=== PATIENT | female | born 1975 | race Caucasian/White ===

== ENCOUNTER 2020-04-13 10:10 | Outpatient (REF) | payer OTHER, SELFPAY | END 2020-04-13 10:11 | disposition home or self-care (01) | LOC: HO.HMGCLDS 10:10 | PROVIDERS: PCP Nurse Practitioner Family; Visit Provider Internal Medicine | DX: Z20.828 Contact with and (suspected) exposure to other viral communicable diseases (principal) | CPT/HCPCS: U0003 ==

== ENCOUNTER 2025-03-30 08:29 | Outpatient (AMB) | payer OTHER, SELFPAY ==
--- NOTE | 2025-03-30 08:29 | MHC.OFFVIS ---
Vital Signs 03/30/25 08:43 Height 5 ft 5 in Weight 240 lb BMI 39.9 BP 140/110 H Blood Pressure Location Rt brachial Position Sitting Respiration 16 Pulse 101 H Pulse Source Pulse Oximeter Pulse Oximetry (%) 96 Oxygen Delivery Method Room Air Intake Visit Reasons: Migraine Differential Tester Required: No Allergies No Known Allergies Allergy (Verified 03/30/25 08:43) Medication List - Last Reconciled 03/30/25 by Paris Terrazas, CHRISTINE eletriptan 0 mg PO erenumab-aooe (Aimovig Autoinjector) mg subcut escitalopram oxalate 10 mg PO DAILY gabapentin 100 mg PO BID 5 days ondansetron HCl 4 mg PO prednisone Day1: Take 3 tablets by mouth in the morning Day2: Take 2 tablets by mouth in the morning Day3: Take 1 tablet by mouth in the morning Day4: Take 0.5 tablet by mouth in the morning Day5: Taken 0.5 tablet by mouth in the morning HPI Comments Details: Naina is a 49-year-old female patient with a past medical history of anxiety and obesity here today to reestablish care with me here at [facility]. I was previously seeing her all at [facility] for treatment of her migraines. She had more recently and placed on Aimovig for migraine prevention and had further improvement in her migraines when Aimovig was increased to 140 mg. She was on eletriptan for abortive therapy was initially some improvement over time we did transition her to zolmitriptan for lack of improvement with the eletriptan. Along with some increased stress levels at home, she had more recently been experiencing higher levels of stress. We added magnesium 400 mg daily back in January of 2025 and I attempted to obtain Ubrelvy 100 mg for abortive therapy though this was denied by her insurance due to concurrent use of Aimovig. She tells me today that she has a very severe migraine which has been present over the course of the days. She has perhaps not had this severe migraine ever in her life before. She has a accompanying severe light sensitivity, nausea, and fatigue. Her head pain is to the left parietal area and felt dizzy throbbing pain. She had a stressful day at work the other day when a patient made her upset and she had an elevation in her blood pressure and a very severe increase in her head pain. She denies any current positional component to her headache and her headache in general is slow onset within a few hours. 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 Past medication trials: Topiramate-cognitive slowing and for efficacy for migraine Eletriptan-no significant improvement Zolmitriptan-sensation of whole-body weakness and blurry vision Sumatriptan-no significant benefit Review of Systems Const All systems reviewed & are unremarkable except as noted in HPI and below Physical Exam Vital Signs: Last Vital Signs Pulse 101 H 03/30/25 08:43 Resp 16 03/30/25 08:43 BP 140/110 H 03/30/25 08:43 Pulse Ox 96 03/30/25 08:43 Oxygen Delivery Method Room Air 03/30/25 08:43 BMI result Body Mass Index 39.9 Const General: cooperative, healthy appearing, comfortable and no acute distress Nutritional Appearance: well nourished Orientation/consciousness: patient oriented x3 Limitations: no limitations HEENT Head: Yes normal to inspection and Yes normocephalic Eyes General: appearance normal, both eyes and all related structures Visual Cyr: normal visual cyr by confrontation Alignment and Position: alignment normal Periorbital: periorbital findings normal Eyelids: Yes eyelids normal Conjunctivae: conjunctivae normal Sclerae: sclerae normal Neuro General: patient oriented x3 and deep tendon reflexes 2+ bilaterally Cranial nerves: Yes CN's II-XII intact bilaterally and Yes Facial sensation intact/muscles of mastication intact Cognition (Neuro): normal cognition Gait exam (Neuro): Normal gait present Motor exam (neuro): 5/5 motor strength present throughout and no tremor noted Sensory Exam: double simultaneous stimulation for sensation normal Romberg Test: Negative Pupils: Normal pupillary reactivity/response: bilateral Psych Appearance: grossly normal Mental Status: mental status grossly normal Speech and movement: Normal speech and movement present and Clear speech present Affect: normal affect Attitude: cooperative Thought process: Normal thought process present Thought content: Normal thought content present Insight: Good insight present (Psych) Judgement: Good judgement present (Psych) Assessment & Plan Assessment & Plan (1) Worsening headaches: Code(s): R51.9 - Headache, unspecified Category: Medical Plan: . (2) Migraine without aura and without status migrainosus, not intractable: Code(s): G43.009 - Migraine without aura, not intractable, without status migrainosus Category: Medical Plan: . Charline Chew is a 49-year-old female patient with a past medical history of anxiety and obesity here today to reestablish care with me here at [facility]. I was previously seeing her all at [facility] for treatment of her migraines. She has been doing relatively well on the Aimovig 140 monthly until 5 days ago when she started to develop a very severe migraine type headache. This is perhaps the most severe migraine she has experienced though features are similar as well as her location of the pain. There are no other red flags for this headache. I suspect it is a severe migraine attack especially that she is due for her next Aimovig injection and this may be secondary to a wear off effect. I will treat with a course of steroids into 5 day course of gabapentin for pain. I gave her a work note to remain out of work and to rest and hydrate. She was provided with a 100 mg tablet of Ubrelvy in office today and I have ordered urgent imaging including a CT and CTA for further evaluation given that this is the worst migraine she has experienced. -Ubrelvy 100 mg sample tablet given in office today lot number:[id number] expiration 05/2026 -5 day course of prednisone for cycle breaking -5 day course of gabapentin 100 mg twice daily for pain control -rest and hydration and remain out of work until at least Thursday of next week -urgent CT of the brain and CTA of the head and neck -follow up after testing Orders: Orders CT head/brain wo IV con Today R51.9 - Headache, unspecified CT angio head neck Today R51.9 - Headache, unspecified Medications: New prednisone Day1: Take 3 tablets by mouth in the morning Day2: Take 2 tablets by mouth in the morning Day3: Take 1 tablet by mouth in the morning Day4: Take 0.5 tablet by mouth in the morning Day5: Taken 0.5 tablet by mouth in the morning 7 tabs 0RF gabapentin 100 mg PO BID 10 caps 0RF 5 days Coding Level of Care Code New Pt Level 4 (84465) Diagnoses Worsening headaches R51.9 Migraine without aura and without status migrainosus, not intractable G43.009
[2025-03-30 08:43] VITALS: BP 140/110; PULSE 101; RESP 16; O2SAT 96; BMI 39.9
--- OUTSIDE RECORDS SUMMARY | 2025-03-30 08:50 | XMS_ITS | Clinical Summary ---
Author Organization [facility] [address] [facility] Address [address] [place] [address] Phone Care Team Providers Care Private Inquiry Agent Name Role Phone Janis Gonzalez RECOOPERER Primary Care Provider + [phone] Allergies No known active allergies Medications erenumab-aooe (Aimovig Autoinjector) 140 mg/mL injection Inject 1 mL (140 mg total) under the skin every 28 (twenty-eight) days. Active escitalopram (LEXAPRO) 10 mg tablet Take 1 tablet (10 mg total) by mouth 1 (one) time each day. Active oxymetazoline 1 % cream Apply topically 1 (one) time each day. Active eletriptan (RELPAX) 40 mg tablet Take 1 tablet (40 mg total) by mouth 1 (one) time if needed for migraine. May repeat in 2 hours if unresolved. Do not exceed 80 mg in 24 hours. Active valACYclovir (VALTREX) 500 mg tablet Take 1 tablet (500 mg total) by mouth 2 (two) times a day. Active estradioL (ESTRACE) 0.5 mg tablet Take 1 tablet (0.5 mg total) by mouth 1 (one) time each day in the morning. 5 Active bisacodyL (DULCOLAX) 5 mg EC tablet Take 2 tablets by mouth right before beginning bowel prep. See instructions provided by the office 2 tablet 5 Active polyethylene glycol (Golytely) 236-22.74-6.74 -5.86 gram solution Take 4L by mouth once for one dose. May substitue any PEG. Starting at 2PM the day before your procedure drink 1 8oz glasses at your own pace until you complete half of the gallon. Finish 2nd half of the gallon at 8PM. 4000 mL 5 Active dicyclomine (BENTYL) 10 mg capsuleIndicati ons:Irritable bowel syndrome with diarrhea Take 1 capsule (10 mg total) by mouth 3 (three) times a day if needed (diarrhea). 90 capsule 5 5 07/12/19 26 Active polyethylene glycol (Golytely) 236-22.74-6.74 -5.86 gram solution Take 4L by mouth once for one dose. May substitue any PEG. Starting at 2PM the day before your procedure drink 1 8oz glasses at your own pace until you complete half of the gallon. Finish 2nd half of the gallon at 8PM. 4000 mL 5 Active bisacodyL (DULCOLAX) 5 mg EC tablet Take 2 tablets by mouth right before beginning bowel prep. See instructions provided by the office 2 tablet 5 Active Active Problems Problem Noted Date Diagnosed Date Severe obesity (BMI 35.0-35. 9 with comorbidity) (CMS/HCC V24, CMS/HCC V28) 01/13/2025 Hyperlipidemia 01/13/2025 Anxiety 01/13/2025 Classic migraine 01/13/2025 Encounters Date Type Department Care Team Description 03/08/2025 Telephone Gastroenterology - [facility] [address] [place] [phone] Ashok Keita DO 01/17/2025 Telephone Gastroenterology [facility] [address] [facility] [address] [place] [phone] Atul Yen MD 01/13/2025 8:42 AM EDT - 01/13/2025 11:59 PM EDT Hospital Encounter [facility]ray [address] [place] [phone] Irritable bowel syndrome with diarrhea Discharge Disposition: Home or Self Care 01/13/2025 8:30 AM EDT Consult Gastroenterology - [address] [place] [phone] Caitlin Ortega PA Irritable bowel syndrome with diarrhea (Primary Dx); Colon cancer screening 01/13/2025 Telephone Gastroenterology - 299 [facility] [address] [facility] [address] [place] [phone] Jacquelin Wilson MA 01/13/2025 Telephone Gastroenterology - 299 [facility] [address] [facility] [address] [place] [address] Marie Castro MA from Last 3 Months Surgical History Surgery Date Site/Laterality Comments WRIST SURGERY Right Family History Medical History Relation Name Comments Hyperlipidemia Father Prostate cancer Father Heart attack Mother Irritable bowel syndrome Mother Colon cancer Neg Hx Inflammatory bowel disease Neg Hx Relation Name Status Comments Father Mother Social History Tobacco Use Types Packs/Day Years Used Date Smoking Tobacco: Former Cigarettes Smokeless Tobacco: Former Tobacco Cessation:Counseling Given: Not Answered Alcohol Use Standard Drinks/Week Comments Yes 0 (1 standard drink = 0.6 oz pur e alcohol) rare Comments Unknown Sex and Gender Information Value Date Recorded Sex Assigned at Female 01/15/2025 6:21 PM EDT Legal Sex Female 2:56 AM EST Gender Identity Female 01/15/2025 6:21 PM EDT Sexual Orientation Not on file Obstetrics History Last Filed Vital Signs Vital Sign Reading Time Taken Comments Blood Pressure - - Pulse - - Temperature - - Respiratory Rate - - Oxygen Saturation - - Inhaled Oxygen Concentration - - Weight 109 kg (240 lb) 01/13/2025 8:16 AM EDT Height 165.1 cm (5' 5 ) 01/13/2025 8:16 AM EDT Body Mass Index 39.94 01/13/2025 8:16 AM EDT Plan of Treatment Upcoming Encounters Date Type Department Care Team (Late st Contact Info) Description 05/15/2025 1:30 PM EST Appointment [facility] Endoscopy [address] [place] [phone] Ashok Keita DO 175 [facility] [place] [address] [place] [address] Health Maintenance Due Date Last Done Comments Breast Cancer Screening 1974 Colorectal Cancer Screening: Colonoscopy 1974 Hepatitis B Vaccines (1 of 3 - 19+ 3-dose series) 1993 Cholesterol Screening (Lipid Panel) 05/18/2022 HIV Screening 05/18/2022 Hepatitis C Screening 05/18/2022 Social Influencers of Health Screening 05/18/2022 Depression Screening 06/15/2024 Pneumococcal Vaccine: 50+ Years (1 of 1 - PCV) 2024 RSV Immunization Adult Patients (1 - Risk 50-74 years 1-dose series) 2024 Zoster Vaccines (1 of 2) 2024 COVID-19 Vaccine (4 - 2024-2 6 season) 2025 05/30/2021, 07/31/2020, 07/06/2020 Influenza Vaccine (#1) 2025 04/13/2020 Cervical Cancer Screening: P ap Smear 11/30/2027 11/29/2024 DTaP,Tdap,and Td Vaccines (3 - Td or Tdap) 02/24/2034 02/25/2024, 03/31/2012 HIB Vaccines Aged Out No longer eligi ble based on patient's age to complete this topic HPV Vaccines Aged Out No longer eligi ble based on patient's age to complete this topic Hepatitis A Vaccines Aged Out No long er eligible based on patient's age to complete this topic IPV Vaccines Aged Out No longer eligi ble based on patient's age to complete this topic MMR Vaccines Aged Out No longer eligi ble based on patient's age to complete this topic Meningococcal ACWY Vaccine Aged Out N o longer eligible based on patient's age to complete this topic Meningococcal B Vaccine Aged Out No l onger eligible based on patient's age to complete this topic RSV Immunization Patients Under 20 months Aged Out No longer eligible b ased on patient's age to complete this topic Varicella Vaccines Aged Out No longer eligible based on patient's age to complete this topic Procedures Procedure Name Priority Date/Time Associated Diagnosis Comments XR ABDOMEN 1 VIEW Routine 01/13/2025 8:4 9 AM EDT Irritable bowel syndrome with diarrhea PAP SMEAR Routine 11/29/2024 12:00 AM EDT Encounter for gynecological examination (general) (routine) without abnormal findings from Last 3 Months or Most Recently Relevant to Health Maintenance Results * XR Abdomen 1 View (01/13/2025 8:49 AM EDT) Anatomical Region Laterality Modality Body Radiographic Mavis ging 01/13/2025 10:0 6 AM EDT Impressions 01/13/2025 10:07 AM EDT Nonobstructive bowel gas pattern. There is no radiographic evidence of constipation as questioned clinically. An IUD is present, with transverse orientation; evaluation for proper IUD position with ultrasound may be considered if clinically warranted. Code 50040 -------- FINAL REPORT -------- Dictated By: Earl Chandler Dictated Date: 01/13/2025 10:06 ET Assigned Physician: Earl Chandler Reviewed and Electronically Signed By: Earl Chandler Signed Date: 01/13/2025 10:07 ET Workstation ID: [id number] Transcribed By: Self Edit Transcribed Date: 01/13/2025 10:06 ET Narrative 01/13/2025 10:07 AM EDT HISTORY: The patient is a 49-year-old female with constipation. FINDINGS: Supine radiographs of the abdomen demonstrate an intrauterine contraceptive device in the pelvis, transversely oriented. Cholecystectomy clips are noted. There are mild degenerative changes of the lumbar spine. The bowel gas pattern is nonobstructive. The volume of fecal material is not unusually increased. No mass or radiopaque calculus is seen. Procedure Note Earl Chandler MD - 01/13/2025 HISTORY: The patient is a 49-year-old female with constipation. FINDINGS: Supine radiographs of the abdomen demonstrate an intrauterinecontraceptive device in the pelvis, transversely oriented.Cholecystectomy clips are noted. There are mild degenerative changes ofthe lumbar spine. The bowel gas pattern is nonobstructive. The volume offecal material is not unusually increased. No mass or radiopaque calculusis seen. IMPRESSION: Nonobstructive bowel gas pattern. There is no radiographic evidence ofconstipation as questioned clinically. An IUD is present, with transverseorientation; evaluation for proper IUD position with ultrasound may beconsidered if clinically warranted. Code 76034 -------- FINAL REPORT -------- Dictated By: Earl Chandler Dictated Date: 01/13/2025 10:06 ET Assigned Physician: Earl Chandler Reviewed and Electronically Signed By: Earl Chandler Signed Date: 01/13/2025 10:07 ET Workstation ID: [id number] Transcribed By: Self Edit Transcribed Date: 01/13/2025 10:06 ET us Caitlin RICO IMG XR PROCEDURES Final Result * Pap smear (11/29/2024 12:00 AM EDT) Interpretation Negative for intraepithelial lesion or malignancy 12/02/2024 7:17 AM EDT [facility] General Categorization Negative 12/02/2024 7:17 AM EDT [facility] Specimen Adequacy Satisfactory for evaluation, endocervical/farias sformation zone component present 12/02/2024 7:17 AM EDT [facility] Pap Methodology Liquid Based Pap Test 12/02/2024 7:17 AM EDT [facility] Disclaimer The Pap test is a screening test which carries an inherent false negative rate. These test results should be correlated with the patient's clinical findings and history. This Pap test was processed using an automated screening system. Technical cytopathology services provided by [facility], at [address] [place] [id number] (CLIA # [id number]/Galo Pedersen MD, Fast Food Assistant Restaurant Manager.) 12/02/2024 7:17 AM EDT [facility] Console Pap Interpretation Reported 12/02/2024 7:17 AM EDT [facility] Brushing/Spatula Cervix uteri structure / Unknown 11/29/2024 11/30/2024 6:24 AM EDT us Michelle Kraft MD LAB CYTOLOGY ORDERABLES Final Result [facility] [address] [place] [id number], from Last 3 Months or Most Recently Relevant to Health Maintenance Insurance [facility] Care Teams Private Inquiry Agent Relationship Specialty Start Date End Date Janis Gonzalez NP [address] [facility] [place] [address] PCP - General Nurse Practitioner 11/22/24
--- OUTSIDE RECORDS SUMMARY | 2025-03-30 08:50 | XMS_ITS | Encounter Summary ---
Author Organization [facility] Address [address] [place] [address] Care Team Providers Care Freight Traffic Consultant Name Role Phone Janis Gonzalez DINING SERVICE SUPERVISOR Primary Care Provider Encounter Details Date Type Department Care Team (Latest Contact Info) Description 11/30/2024 Lab Requisition [facility] - Main Lab [address] [facility] [place] [phone] Michelle Kraft MD 299 [facility] [address] [place] [phone] Encounter for gynecological examination (general) (routine) without abnormal findings Social History Tobacco Use Types Packs/Day Years Used Date Smoking Tobacco: Never Assessed Comments Unknown Sex and Gender Information Value Date Recorded Sex Assigned at Female 01/15/2025 6:21 PM EDT Legal Sex Female 2:56 AM EST Gender Identity Female 01/15/2025 6:21 PM EDT Sexual Orientation Not on file documented as of this encounter Plan of Treatment Upcoming Encounters Date Type Department Care Team (Late st Contact Info) Description 05/15/2025 1:30 PM EST Appointment [facility] Endoscopy [address] [place] [phone] Ashok Keita DO 175 [facility] [address] [place], [place] [phone] documented as of this encounter Procedures Procedure Name Priority Date/Time Associated Diagnosis Comments PAP SMEAR Routine 11/29/2024 12:00 AM EDT Encounter for gynecological examination (general) (routine) without abnormal findings documented in this encounter Results * Pap smear (11/29/2024 12:00 AM EDT) Interpretation Negative for intraepithelial lesion or malignancy 12/02/2024 7:17 AM EDT [facility] General Categorization Negative 12/02/2024 7:17 AM EDT [facility] Specimen Adequacy Satisfactory for evaluation, endocervical/farias sformation zone component present 12/02/2024 7:17 AM EDT [facility] Pap Methodology Liquid Based Pap Test 12/02/2024 7:17 AM EDT [facility] Disclaimer The Pap test is a screening test which carries an inherent false negative rate. These test results should be correlated with the patient's clinical findings and history. This Pap test was processed using an automated screening system. Technical cytopathology services provided by [facility], at [address] [place] [address] (CLIA # [id number]/Galo Pedersen MD, Javascript Application Developer.) 12/02/2024 7:17 AM T [facility] Console Pap Interpretation Reported 12/02/2024 7:17 AM [facility] Brushing/Spatula Cervix uteri structure / Unknown 11/29/2024 11/30/2024 6:24 AM EDT us Michelle Kraft MD LAB CYTOLOGY ORDERABLES Final Result [facility] [address] [place] [address], documented in this encounter Visit Diagnoses Diagnosis Encounter for gynecological examination (general) (routine) without abnormal findings documented in this encounter Care Teams Freight Traffic Consultant Relationship Specialty Start Date End Date Janis Gnozalez NP [address] [facility] [place] [address] PCP - General Nurse Practitioner 11/22/24 documented as of this encounter
== END 2025-03-30 10:11 | disposition home or self-care (01) ==
LOC: HO.HSM 08:30
PROVIDERS: PCP Nurse Practitioner Family; Visit Provider Nurse Practitioner
DX: R51.9 Headache, unspecified (principal); G43.009 Migraine without aura, not intractable, without status migrainosus
CPT/HCPCS: 99204

== ENCOUNTER 2025-04-17 07:49 | Outpatient (AMB) | payer OTHER, SELFPAY ==
--- NOTE | 2025-04-17 07:49 | A.OFFVIS_ITS ---
Vital Signs 04/17/25 07:56 Height 5 ft 5 in Weight 245 lb BMI 40.8 BP 132/88 Blood Pressure Location Rt brachial Position Sitting Respiration 16 Pulse 92 Pulse Source Pulse Oximeter Pulse Oximetry (%) 97 Oxygen Delivery Method Room Air Intake Visit Reasons: Migraine Windows Administrator Required: No Allergies No Known Allergies Allergy (Verified 04/17/25 07:57) Medication List - Last Reconciled 04/17/25 by Paris Terrazas CNP atogepant (Qulipta) 60 mg PO DAILY 30 days eletriptan 0 mg PO escitalopram oxalate 10 mg PO DAILY naproxen 500 mg PO ONCE PRN ondansetron HCl 4 mg PO HPI Comments Details: Naina is a 49-year-old female patient with a past medical history of anxiety and obesity here today for a follow up visit for headache. She has been doing relatively well on Aimovig 140 mg monthly until approximately 5 days prior to our last visit when she developed a very severe migraine-type headache. The migraine was similar in terms of features and location of her head pain though she had not experienced such a severe headache in the past. I did recommend a CT and CTA for further evaluation which unfortunately has at this point not been scheduled. There were however no red flags on her last exam. Her typical headaches are often located to the left parietal area felt as a dizzy and throbbing pain accompanied by severe light sensitivity, nausea, and fatigue. She was given Ubrelvy 100 mg as a sample at time of last visit, a 5 day course of prednisone, a 5 day course of gabapentin 100 mg twice daily, and was advised for rest and hydration. She was also to continue on her Aimovig injections. Naina tells me today that after her office visit she actually ended up going to the emergency department at [facility] where she received a migraine cocktail. She tells me that the migraine cocktail worked very well and she did not have any further migraine after her ER visit. She never did take the steroid or gabapentin. Since then, she has had only 1 migraine which was this past weekend and lasted for approximately 12 hours and finally subsided with Excedrin migraine. She does note that she has been having severe anxiety about taking her Aimovig and each month she has anxiety for nearly an entire day leading up to her injection. He has been administering it for her. She does however believe that it has been helpful overall in reducing the frequency of her migraines aside from a couple of destinct migraine episodes. Past medication trials: Topiramate-cognitive slowing and for efficacy for migraine Eletriptan-no significant improvement Zolmitriptan-sensation of whole-body weakness and blurry vision Sumatriptan-no significant benefit Review of Systems Const All systems reviewed & are unremarkable except as noted in HPI and below Physical Exam Const General: cooperative, healthy appearing, comfortable and no acute distress Nutritional Appearance: well nourished Orientation/consciousness: patient oriented x3 Limitations: no limitations HEENT Head: Yes normal to inspection and Yes normocephalic Eyes General: appearance normal, both eyes and all related structures Visual Cyr: normal visual cyr by confrontation Alignment and Position: alignment normal Periorbital: periorbital findings normal Eyelids: Yes eyelids normal Conjunctivae: conjunctivae normal Sclerae: sclerae normal Neuro General: patient oriented x3 and deep tendon reflexes 2+ bilaterally Cranial nerves: Yes CN's II-XII intact bilaterally and Yes Facial sensation intact/muscles of mastication intact Cognition (Neuro): normal cognition Gait exam (Neuro): Normal gait present Motor exam (neuro): 5/5 motor strength present throughout and no tremor noted Sensory Exam: double simultaneous stimulation for sensation normal Romberg Test: Negative Pupils: Normal pupillary reactivity/response: bilateral Psych Appearance: grossly normal Mental Status: mental status grossly normal Speech and movement: Normal speech and movement present and Clear speech present Affect: normal affect Attitude: cooperative Thought process: Normal thought process present Thought content: Normal thought content present Insight: Good insight present (Psych) Judgement: Good judgement present (Psych) Assessment & Plan Assessment & Plan (1) Migraine without aura and without status migrainosus, not intractable: Code(s): G43.009 - Migraine without aura, not intractable, without status migrainosus Category: Medical (2) Worsening headaches: Code(s): R51.9 - Headache, unspecified Category: Medical Plan Naina is a 49-year-old female patient with a past medical history of anxiety and obesity here today for a follow up visit for headache. She has been doing relatively well on Aimovig 140 mg monthly until approximately 5 days prior to our last visit when she developed a very severe migraine-type headache. She had relief after a migraine cocktail at the [facility]. She has had 1 subsequent migraine. Overall, she does feel that the Aimovig has been working to reduce the frequency of her migraines aside from these prolonged migraine attacks. She does however have severe needle anxiety and would like to transition to an oral agent. I will discontinue the Aimovig and start her on Qulipta 60 mg daily for prevention. For abortive relief, she was encouraged to continue her Eletriptan but with a naproxen 500 mg for added abortive relief. She is still awaiting CT and CTA imaging. -CT and CTA imaging 05/09/2025 -discontinue Aimovig and start a trial of Qulipta 60 mg daily -continue Eletriptan with naproxen 500 mg -follow up in 2 months or sooner if needed Medications: New atogepant (Qulipta) 60 mg PO DAILY 30 tabs 5RF 30 days naproxen Take with eletriptan 500 mg PO ONCE PRN 20 tabs 3RF migraine headache Coding Level of Care Code Est Pt Level 4 (22131) Diagnoses Migraine without aura and without status migrainosus, not intractable G43.009 Worsening headaches R51.9
--- OUTSIDE RECORDS SUMMARY | 2025-04-17 07:52 | XMS_ITS | Clinical Summary ---
Author Organization [facility] 299 [facility] Address [address] [place] [address] Phone Care Team Providers Care Hybrid Derivatives Trader Name Role Phone Janis Gonzalez MUNICIPAL SERVICES MANAGER Primary Care Provider + [phone] Allergies No known active allergies Medications erenumab-aooe [...] Severe obesity (BMI 35.0-35. 9 with comorbidity) (CMS/[facility] V24, CMS/[facility] V28) 01/13/2025 Hyperlipidemia 01/13/2025 Anxiety 01/13/2025 Classic migraine 01/13/2025 Encounters Date Type Department Care Team Description 03/08/2025 Telephone Gastroenterology [facility] 175 [facility] [address] [address] Ashok Keita DO 01/17/2025 Telephone Gastroenterology [facility] [address] [place] [address] [address] Atul Yen MD from Last 3 Months Surgical History Surgery [...] Info) Description 05/15/2025 1:30 PM EST Appointment [facility] Endoscopy [address] [place] [address] Ashok Keita DO [address] [place] [phone] Health Maintenance Due Date Last Done Comments [...] on patient's age to complete this topic Goals Goal Patient Goal Type Associated Problems Recent Progress Patient-Stated? Author Autogenerat ed Goal Care Plan Autogenerated Problem No Kati Vega Procedures Procedure Name Priority Date/Time Associated Diagnosis Comments PAP SMEAR Routine 11/29/2024 12:00 AM EDT Encounter for gynecological examination (general) (routine) without abnormal findings from Last 3 Months or Most Recently Relevant to Health Maintenance Results * Pap smear (11/29/2024 12:00 AM EDT) Interpretation Negative for intraepithelial lesion or malignancy 12/02/2024 7:17 AM [facility] General Categorization Negative 12/02/2024 7:17 AM T [facility] Specimen Adequacy Satisfactory for evaluation, endocervical/farias sformation zone component present 12/02/2024 7:17 AM [facility] Pap Methodology Liquid Based Pap Test 12/02/2024 7:17 AM [facility] Disclaimer The Pap test is a screening test which carries an inherent false negative rate. These test results should be correlated with the patient's clinical findings and history. This Pap test was processed using an automated screening system. Technical cytopathology services provided by [facility], at [address] [place] [id number] (CLIA # [id number]/Galo Pedersen MD, Disability Insurance Claim Examiner.) 12/02/2024 7:17 AM EDT [facility] Console Pap Interpretation Reported 12/02/2024 7:17 AM EDT [facility] Brushing/Spatula Cervix uteri structure / Unknown 11/29/2024 11/30/2024 6:24 AM EDT us Michelle Kraft MD LAB CYTOLOGY ORDERABLES Final Result [facility] [address] [place] [address], from Last 3 Months or Most Recently Relevant to Health Maintenance Additional Health Concerns Active Problems Noted Date Diagnosed Date Autogenerated Problem 04/16/2025 Insurance [facility] Care Teams Hybrid Derivatives Trader Relationship Specialty Start Date End Date Janis Gonzalez NP [address] [facility] [place] [address] PCP - General Nurse Practitioner 11/22/24
--- OUTSIDE RECORDS SUMMARY | 2025-04-17 07:52 | XMS_ITS | Encounter Summary ---
Author Organization [facility] Address [address] [place] [address] Care Team Providers Care Digital Operations Analyst Name Role Phone Janis Gonzalez SECURITY SYSTEM SALES CONSULTANT Primary Care Provider Encounter Details Date Type Department Care Team (Latest Contact Info) Description 11/30/2024 Lab Requisition [facility] - Main Lab 299 [facility] [place] [phone] Michelle Kraft MD [address] [phone] Encounter for gynecological examination (general) (routine) without [...] Info) Description 05/15/2025 1:30 PM EST Appointment [facility] Endoscopy [address] [place] [phone] Ashok Keita DO [address] [place] [phone] documented as of this encounter Procedures Procedure Name Priority Date/Time Associated Diagnosis Comments PAP SMEAR Routine 11/29/2024 12:00 AM EDT Encounter for gynecological examination (general) (routine) without abnormal findings documented in this encounter Results * Pap smear (11/29/2024 12:00 AM EDT) Interpretation Negative for intraepithelial lesion or malignancy 12/02/2024 7:17 AM EDT [facility] General Categorization Negative 12/02/2024 7:17 AM EDT [facility] Specimen Adequacy Satisfactory for evaluation, endocervical/farias sformation zone component present 12/02/2024 7:17 AM EDT [facility] Pap Methodology Liquid Based Pap Test 12/02/2024 7:17 AM EDT [facility] Disclaimer The Pap test is a screening test which carries an inherent false negative rate. These test results should be correlated with the patient's clinical findings and history. This Pap test was processed using an automated screening system. Technical cytopathology services provided by [facility], at [address] [place] [address] (CLIA # [id number]/Galo Pedersen MD, Api Developer.) 12/02/2024 7:17 AM T [facility] Console Pap Interpretation Reported 12/02/2024 7:17 AM [facility] Brushing/Spatula Cervix uteri structure / Unknown 11/29/2024 11/30/2024 6:24 AM EDT us Michelle Kraft MD LAB CYTOLOGY ORDERABLES Final Result [facility] [address] [place] [address], documented in this encounter Visit Diagnoses Diagnosis Encounter for gynecological examination (general) (routine) without abnormal findings documented in this encounter Care Teams Digital Operations Analyst Relationship Specialty Start Date End Date Janis Gonzalez NP [address] [place] [address] PCP - General Nurse Practitioner 11/22/24 documented as of this encounter
[2025-04-17 07:56] VITALS: BP 132/88; PULSE 92; RESP 16; O2SAT 97; BMI 40.8
== END 2025-04-17 08:17 | disposition home or self-care (01) ==
LOC: HO.HSM 07:50
PROVIDERS: PCP Nurse Practitioner Family; Visit Provider Nurse Practitioner
DX: G43.009 Migraine without aura, not intractable, without status migrainosus (principal); R51.9 Headache, unspecified
CPT/HCPCS: 99214

== ENCOUNTER 2025-05-09 09:17 | Outpatient (REF) | payer OTHER, SELFPAY ==
--- NOTE | ~2025-05-09 | CT_ITS ---
EXAMINATION: CT ANGIOGRAM HEAD AND NECK CLINICAL INFORMATION: R51.9 - Headache, unspecified COMPARISON: None available. TECHNIQUE: Noncontrast axial imaging of the head was performed. This was followed by test bolus sequences and head and neck intravenous bolus administration of 70 mL of Omnipaque 350. Helical imaging was performed in the axial plane from the aortic arch to the skull vertex. The data was processed at the mechanical engineering technologist's workstation for generation of MIP sequences. Angled MIPs and volume rendered reformatted images were also generated at an offline 3D workstation. Stenoses are assessed in accordance with NASCET criteria unless otherwise indicated. This CT examination was performed using dose optimization techniques as appropriate, variously including the following: *Automated exposure control *Adjustment of mA and/or kV according to patient size (this includes techniques or standardized protocols for targeted exams where dose is matched to indication/reason for exam; i.e. extremities or head) *Use of iterative reconstruction technique FINDINGS: NONCONTRAST HEAD CT: There is no evidence of intracranial hemorrhage or extra-axial fluid collection. There is no mass effect, or edema. No CT evidence of acute territorial infarct. Ventricles, sulci, and cisterns are normal in size and configuration for patient age. No hydrocephalus. No midline shift. No significant white matter abnormalities. Globes and orbital contents image normally. No extracranial soft tissue abnormalities. The paranasal sinuses, mastoid air cells, and tympanic cavities are normally aerated. There are no suspicious bony abnormalities. NECK CTA: Mildly degraded by motion artifact. -AORTIC ARCH: Normal in caliber. Three-vessel branching pattern. -GREAT VESSEL ORIGINS: Widely patent. No stenosis. -RIGHT COMMON CAROTID ARTERY: Normal in course and caliber to the level of the bifurcation. -CERVICAL RIGHT INTERNAL CAROTID ARTERY: Normal opacification without focal stenosis or occlusion. -LEFT COMMON CAROTID ARTERY: Normal in course and caliber to the level of the bifurcation. -CERVICAL LEFT INTERNAL CAROTID ARTERY: Normal opacification without focal stenosis or occlusion -CERVICAL RIGHT VERTEBRAL ARTERY: Codominant. Normal in course and caliber into the skull base. -CERVICAL LEFT VERTEBRAL ARTERY: Codominant. Normal in course and caliber into the skull base. OTHER, SOFT TISSUES: -No lymphadenopathy or mass. No abnormal fluid collection or soft tissue swelling. -There is an 8 mm low attenuating lesion in the left lobe of thyroid gland and a 6 mm hypoattenuating lesion with peripheral hyperenhancement in the right lobe.. -Imaged superior mediastinal structures normal. -Imaged lung apices clear. CTA OF THE BRAIN: -INTRACRANIAL INTERNAL CAROTID ARTERIES: No focal stenosis or occlusion. Minimal atherosclerotic plaque is present in the carotid siphons. -RIGHT ANTERIOR CEREBRAL ARTERY: Normal A1 segment.. Normal arborization of the distal segments. -LEFT ANTERIOR CEREBRAL ARTERY: Normal A1 segment.. Normal arborization of the distal segments. -ANTERIOR COMMUNICATING ARTERY: Normal. -RIGHT MIDDLE CEREBRAL ARTERY: Normal M1 segment of the MCA without focal stenosis or occlusion. Normal bifurcation. Normal arborization of the distal segments. -LEFT MIDDLE CEREBRAL ARTERY: Normal M1 segment of the MCA without focal stenosis or occlusion. Normal bifurcation. Normal arborization of the distal segments. -RIGHT VERTEBRAL ARTERY V4: Normal in course and caliber. Normal PICA branch. -LEFT VERTEBRAL ARTERY V4: Normal in course and caliber. Normal PICA branch. -BASILAR ARTERY: Normal without focal stenosis or occlusion. Normal appearance of the proximal superior cerebellar arteries. Normal basilar tip. -RIGHT POSTERIOR CEREBRAL ARTERY: Normal P1 segment. Normal opacification of the distal OIL TRANSPORT DRIVER segments. -LEFT POSTERIOR CEREBRAL ARTERY: Normal P1 segment. Normal opacification of the distal OIL TRANSPORT DRIVER segments. -POSTERIOR COMMUNICATING ARTERIES: The right is small but present. Left is unremarkable. Normal opacification of the superior sagittal, straight, transverse, and sigmoid sinuses. No venous thrombosis. No space-occupying hemorrhage or definite evolving infarct. CT/CT angio head neck IMPRESSION: NONCONTRAST HEAD CT: No acute intracranial abnormality. CTA NECK: Mildly degraded by motion artifact. No hemodynamically significant stenosis. CTA HEAD: No hemodynamically significant stenosis. Bilateral thyroid gland nodules. Follow-up nonemergent thyroid ultrasound Prelim result delivered via THYME at 10:29 am EST to Cornelio Terrazas NP Electronically signed by: Lio Moore MD 05/09/2025 10:30 AM EST
[2025-05-09] MEDS: iohexoL 350 MG/ML 100 ML INFUS..BTL IV (09:35)
--- OUTSIDE RECORDS SUMMARY | 2025-05-09 10:23 | XMS_ITS | Clinical Summary ---
Author Organization [facility] 299 [facility] Address [address] [place] [address] Phone Care Team Providers Care Necktie Stitcher Name Role Phone Janis Gonzalez MICA PATCHER Primary Care Provider + [phone] Allergies No known active allergies Medications erenumab-aooe [...] (BMI 35.0-35. 9 with comorbidity) (CMS/HCC V24, CMS/[facility] V28) 01/13/2025 Hyperlipidemia 01/13/2025 Anxiety 01/13/2025 Classic migraine 01/13/2025 Encounters Date Type Department Care Team Description 03/08/2025 Telephone Gastroenterology - [place] 175 [facility] 175 [facility] 200 [place] [address] Ashok Keita DO from Last 3 Months Surgical History Surgery [...] Contact Info) Description 05/15/2025 1:30 PM EST Hospital Encounter [facility] Endoscopy [address] [place] [phone] Ashok Keita, DO 299 [facility] [address] [place] [address] Health Maintenance Due Date Last Done Comments [...] lesion or malignancy 12/02/2024 7:17 AM EDT [facility] General Categorization Negative 12/02/2024 7:17 AM EDT [facility] Specimen Adequacy Satisfactory for evaluation, endocervical/farias sformation zone component present 12/02/2024 7:17 AM EDT [facility] Pap Methodology Liquid Based Pap Test 12/02/2024 7:17 AM EDT [facility] Disclaimer The Pap test is a screening test which carries an inherent false negative rate. These test results should be correlated with the patient's clinical findings and history. This Pap test was processed using an automated screening system. Technical cytopathology services provided by [facility], at [address] [place] [address] (CLIA # [id number]/Glao Pedersen MD, Dye Weigher Helper.) 12/02/2024 7:17 AM EDT [facility] Console Pap Interpretation Reported 12/02/2024 7:17 AM EDT [facility] Brushing/Spatula Cervix uteri structure / Unknown 11/29/2024 11/30/2024 6:24 AM EDT us Michelle Kraft MD LAB CYTOLOGY ORDERABLES Final Result [facility] [address] [place] [address], from Last 3 Months or Most Recently Relevant to Health Maintenance Additional Health Concerns Active Problems Noted Date Diagnosed Date Autogenerated Problem 04/16/2025 Insurance [facility] Care Teams Necktie Stitcher Relationship Specialty Start Date End Date Janis Gonzalez NP [facility] [address] [facility] ADULT MEDICINE [place], [place] [phone] PCP - General Nurse Practitioner 11/22/24
--- OUTSIDE RECORDS SUMMARY | 2025-05-09 10:23 | XMS_ITS | Encounter Summary ---
Author Organization [facility] Address [address] [place] [address] Care Team Providers Care Advertising Traffic Manager Name Role Phone Janis Gonzalez ADULT FAMILY HOME PROGRAM MANAGER Primary Care Provider Encounter Details Date Type Department Care Team (Latest Contact Info) Description 11/30/2024 Lab Requisition [facility] - Main Lab 299 [facility] [place] [phone] Michelle Kraft MD 299 [facility] [address] [place] [phone] Encounter for gynecological examination (general) (routine) without [...] Description 05/15/2025 1:30 PM EST Hospital Encounter [facility] Endoscopy [address] [place] [phone] Ashok Keita DO 299 [facility] [address] [place] [address] documented as of this encounter Procedures Procedure Name Priority Date/Time Associated Diagnosis Comments PAP SMEAR Routine 11/29/2024 12:00 AM EDT Encounter for gynecological examination (general) (routine) without abnormal findings documented in this encounter Results * Pap smear (11/29/2024 12:00 AM EDT) Interpretation Negative for intraepithelial lesion or malignancy 12/02/2024 7:17 AM EDT [facility] General Categorization Negative 12/02/2024 7:17 AM EDT [facility] Specimen Adequacy Satisfactory for evaluation, endocervical/farias sformation zone component present 12/02/2024 7:17 AM EDT [facility] Pap Methodology Liquid Based Pap Test 12/02/2024 7:17 AM EDT [facility] Disclaimer The Pap test is a screening test which carries an inherent false negative rate. These test results should be correlated with the patient's clinical findings and history. This Pap test was processed using an automated screening system. Technical cytopathology services provided by [facility], at [address] [place] [address] (CLIA # [id number]/Galo Pedersen MD, Postal Service Mail Processor.) 12/02/2024 7:17 AM T [facility] Console Pap Interpretation Reported 12/02/2024 7:17 AM [facility] Brushing/Spatula Cervix uteri structure / Unknown 11/29/2024 11/30/2024 6:24 AM EDT us Michelle Kraft MD LAB CYTOLOGY ORDERABLES Final Result [facility] [address] [place] [address], documented in this encounter Visit Diagnoses Diagnosis Encounter for gynecological examination (general) (routine) without abnormal findings documented in this encounter Care Teams Advertising Traffic Manager Relationship Specialty Start Date End Date Janis Gonzalez NP [address] [facility] [place] [address] PCP - General Nurse Practitioner 11/22/24 documented as of this encounter
[2025-05-09 16:32] LABS: Creatinine POC 1.0 mg/dL (0.5-1.4); GFR POC > 60
== END 2025-05-09 09:18 | disposition home or self-care (01) ==
LOC: HO.CT 09:17
PROVIDERS: PCP Nurse Practitioner Family; Visit Provider Nurse Practitioner
DX: R51.9 Headache, unspecified (principal)
CPT/HCPCS: 70496; 70498; 82565; Q9967

== ENCOUNTER → 2025-05-09 09:19 | Outpatient (BNV) | payer OTHER, SELFPAY | PROVIDERS: PCP Nurse Practitioner Family; Visit Provider Radiology Diagnostic Radiology | DX: R51.9 Headache, unspecified (principal); E07.9 Disorder of thyroid, unspecified | CPT/HCPCS: 70496; 70498 ==